=== PATIENT | male | born 1945 | race Caucasian/White ===

== ENCOUNTER 2017-02-28 16:07 | Inpatient (IN) | payer OTHER ==
[~2017-02-28] VITALS: Ht 180.3 cm; Wt 72.6 kg
[2017-03-06 07:34] VITALS: BP 153/81
[2017-03-06 07:56] VITALS: BP 153/81
[2017-03-06 17:05] LABS: BASOPHIL % 0 % (0-2); PLATELET COUNT 199 x10^3mcL (130-400); RED CELL DISTRIBUTION WIDTH 14.4 % (11.5-14.5)
[2017-03-06 17:10] LABS: AMYLASE 55 U/L (25-115); CALCIUM 8.3 mg/dL (8.5-10.1); CARBON DIOXIDE 32.7 mmol/L (21-32); CHLORIDE SERUM 105 mmol/L (98-107); CHOLESTEROL 176 mg/dL (<200); CHOLESTEROL/HDL RATIO 5.3; CREATININE SERUM 0.7 mg/dL (0.7-1.3); GLUCOSE SERUM 120 mg/dL (74-106); HDL CHOLESTEROL 33 mg/dL (40-60); LIPASE 252 IU/L (73-393); MAGNESIUM 1.7 mg/dL (1.8-2.4); PHOSPHOROUS 3.1 mg/dL (2.5-4.9); POTASSIUM SERUM 4.6 mmol/L (3.5-5.1); SODIUM SERUM 140 mmol/L (136-145); TRIGLYCERIDES 82 mg/dL (<150)
[2017-03-06 17:23] LABS: T3 TOTAL 1.02 ng/mL
[2017-03-06 17:50] VITALS: BP 102/69
[2017-03-06 18:01] LABS: FREE T4 0.9 ng/dL (0.76-1.46); FREE THYROXINE INDEX 1.9 ug/dL (1.4-4.5); T4(THYROXINE) 5.3 ug/dL (4.7-13.3)
[2017-03-06 19:07] LABS: microscopic required? YES; urine erythrocyte 2+ (NEGATIVE)
[2017-03-06 19:15] LABS: AMPHETAMINE QUAL UR NONE DETECTED (NEG <=1000)
[2017-03-06 21:06] VITALS: BP 103/56
[2017-03-07 05:04] VITALS: BP 98/64
[2017-03-07 06:26] LABS: BASOPHIL % 0.2 % (0-2); PLATELET COUNT 176 x10^3mcL (130-400)
[2017-03-07 06:30] LABS: CALCIUM 7.7 mg/dL (8.5-10.1); CARBON DIOXIDE 28.5 mmol/L (21-32); CHLORIDE SERUM 103 mmol/L (98-107); CREATININE SERUM 0.9 mg/dL (0.7-1.3); GLUCOSE SERUM 121 mg/dL (74-106); MAGNESIUM 1.7 mg/dL (1.8-2.4); POTASSIUM SERUM 4.1 mmol/L (3.5-5.1); SODIUM SERUM 135 mmol/L (136-145)
[2017-03-07 07:05] LABS: RED CELL DISTRIBUTION WIDTH 14.8 % (11.5-14.5)
[2017-03-07 09:00] VITALS: BP 122/56
[2017-03-07 13:02] VITALS: BP 119/55
[2017-03-07 17:19] VITALS: BP 130/66; BP 131/92
[2017-03-07 21:55] VITALS: BP 128/69
[2017-03-08 06:05] VITALS: BP 151/71
[2017-03-08 06:15] LABS: BASOPHIL % 0.2 % (0-2); PLATELET COUNT 177 x10^3mcL (130-400)
[2017-03-08 06:45] LABS: ALKALINE PHOSPHATASE 37 U/L (46-116); ALT/SGPT 22 U/L (16-63); AST/SGOT 39 U/L (15-37); BILIRUBIN TOTAL 0.71 mg/dL (0.20-1.00); CALCIUM 8.1 mg/dL (8.5-10.1); CARBON DIOXIDE 27.1 mmol/L (21-32); CHLORIDE SERUM 101 mmol/L (98-107); CREATININE SERUM 0.8 mg/dL (0.7-1.3); GLUCOSE SERUM 109 mg/dL (74-106); PHOSPHOROUS 2.1 mg/dL (2.5-4.9); POTASSIUM SERUM 4.2 mmol/L (3.5-5.1); SODIUM SERUM 133 mmol/L (136-145)
[2017-03-08 06:48] LABS: ALBUMIN 2.6 g/dL (3.4-5.0); TOTAL PROTEIN, SERUM 6.1 g/dL (6.4-8.2)
[2017-03-08 06:52] LABS: RED CELL DISTRIBUTION WIDTH 14.6 % (11.5-14.5)
[2017-03-08 09:21] VITALS: BP 142/64
[2017-03-08] MEDS ORDERED: DIL2 PO (11:07)
[2017-03-08] MEDS ORDERED: ATORVASTATIN CA40 M1 PO (11:07)
[2017-03-08] MEDS ORDERED: APAP/HYDROCODON1 T13 PO (11:07)
[2017-03-08] MEDS ORDERED: COL100 PO (11:08)
== END 2017-03-08 15:05 | DRG 469 ==
LOC: DU 16:07 → MU 16:07 → DU 03-06 07:30 → MU 03-06 13:55 → DU 03-06 14:02 → MU 03-07 09:05
PROVIDERS: Family Medicine Sports Medicine; Neuromusculoskeletal Medicine, Sports Medicine; ADMIT Family Medicine
PROC: 0SRB03A Replacement of Left Hip Joint with Ceramic Synthetic Substitute, Uncemented, Open Approach (ICD-10-PCS; principal; 2017-03-06 07:30)
DX: M16.12 Unilateral primary osteoarthritis, left hip (principal); E43 Unspecified severe protein-calorie malnutrition; E87.1 Hypo-osmolality and hyponatremia; D68.69 Other thrombophilia; T83.83XA Hemorrhage due to genitourinary prosthetic devices, implants and grafts, initial encounter; E83.42 Hypomagnesemia; E11.51 Type 2 diabetes mellitus with diabetic peripheral angiopathy without gangrene; E83.39 Other disorders of phosphorus metabolism; R31.9 Hematuria, unspecified; E78.5 Hyperlipidemia, unspecified; D64.9 Anemia, unspecified; Z68.22 Body mass index [BMI] 22.0-22.9, adult; Z87.891 Personal history of nicotine dependence
CPT/HCPCS: 82962; 83880; 84439; 94150; 97110-GP; 97116-GP; 97530-GP; C1776; J0690; J1650; J2001; J2250; J2274; J2405; J2704; J3475; J3490; J7030; J7120; Q0092